=== PATIENT | male | born 1965 | race Caucasian/White ===

== ENCOUNTER 2024-03-25 18:55 | Emergency (ER) | payer OTHER, SELFPAY ==
[2024-03-25 19:09] VITALS: PULSE 117; RESP 16; TEMP 37; O2SAT 100
--- NOTE | 2024-03-25 19:17 | ED.EXTPRO ---
HPI - Extremity Problem General Chief complaint: Extremity Problem,Nontraumatic Stated complaint: foot and leg swelling Time Seen by Provider: 03/25/24 19:17 Source: patient Mode of arrival: ambulatory Limitations: no limitations History of Present Illness HPI Narrative: 59 yo M presents with c/o redness, swelling pain to L lower leg for 2 days. Afebrile. concerned for cellulitis. has had callus to plantar aspect L foot for several years. trimmed it down a few days ago . 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 has blood blister to L side of foot. Was not aware of it. All systems reviewed and negative except as noted above. Related Data Home Medications Medication Instructions Recorded Confirmed albuterol sulfate 90 mcg/actuation 1 puff inhalation Q4H PRN 04/23/22 05/04/22 aerosol inhaler (ProAir HFA) baclofen 10 mg tablet 10 mg PO TID 04/23/22 05/04/22 budesonide-formoterol HFA 80 2 puff inhalation Q12H 04/23/22 05/04/22 mcg-4.5 mcg/actuation aerosol inhaler (Symbicort) hydromorphone 4 mg tablet 4 mg PO .5 times a day PRN 04/23/22 05/04/22 (Dilaudid) lorazepam 0.5 mg tablet (Ativan) 0.5 mg PO DAILY PRN 04/23/22 05/04/22 methadone 10 mg tablet 10 mg PO BID 04/23/22 05/04/22 sennosides 8.6 mg tablet (Senokot) 8.6 mg PO DAILY 04/23/22 05/04/22 escitalopram oxalate 10 mg tablet 20 mg PO DAILY 04/30/22 05/04/22 (Lexapro) magnesium citrate 125 mg capsule 250 mg PO DAILY 04/30/22 05/04/22 ondansetron HCl 4 mg tablet 4 mg PO Q6H 04/30/22 05/04/22 Allergies Allergy/AdvReac Type Severity Reaction Status Date / Time morphine Allergy Mild Itching Verified 03/25/24 19:11 Review of Systems Review of Systems: CONSTITUTIONAL: Denies fever, chills, or sweats. EYES: Denies visual changes, redness, or discharge. ENT: Denies rhinorrhea, congestion, sore throat, or otalgia. CARDIOVASCULAR: Denies chest pain, palpitations, or edema. RESPIRATORY: Denies cough or dyspnea. GASTROINTESTINAL: Denies abdominal pain, nausea, vomiting, or diarrhea. GENITOURINARY: Denies dysuria or hematuria. SKIN: Denies rash or itching. MUSCULOSKELETAL: Denies back pain, joint pain, or myalgia. Reports Erythema, tenderness and swelling to left lower extremity NEUROLOGIC: Denies headache, numbness, or weakness. PSYCHIATRIC: Denies anxiety or depression. All other systems reviewed are negative, except as documented in HPI. [facility] Past Medical History Medical History Chronic back pain COPD (chronic obstructive pulmonary disease) Surgical History Surgical History History of back surgery S/P laparoscopic cholecystectomy S/P vasectomy Family History Family History Father Cancer Mother CHF (congestive heart failure) Other Hypertension Cancer Social History Social History Smoking status: Current every day smoker Tobacco type: cigarettes Substance use: never Comments At time of signature, agree with nursing past medical, surgical, social and family history. There is no relevant family history pertinent to the presenting complaint. Exam Narrative: GENERAL: This is a well-nourished, well-developed patient, in no apparent distress. HEAD: normocephalic, atraumatic. EYES: PERRL. Sclera clear/white. Vision is grossly intact. EARS: External ears normal, auditory canals clear and without drainage, TMs normal without perforation. Hearing grossly intact. NOSE: External nose normal with no obvious nasal discharge, nares without redness, no rhinorrhea. THROAT: Mucous membranes moist, posterior pharynx clear. NECK: Neck supple, non-tender without lymphadenopathy, masses or thyromegaly. CARDIOVASCULAR: Regular rate and rhythm without murmurs, gallops, or rubs. RESPIRATORY: Clear to auscultation. Breath sounds
[2024-03-25] MEDS: cefTRIAXone 1 GM, LIDOCAINE HCL 1% LOCAL INJ 2.1 ML IM (19:38)
== END 2024-03-25 19:45 | disposition home or self-care (01) ==
PROVIDERS: Emergency Provider Nurse Practitioner Family; PCP Family Medicine
DX: S90.822A Blister (nonthermal), left foot, initial encounter (principal); L03.116 Cellulitis of left lower limb; X58.XXXA Exposure to other specified factors, initial encounter; F17.210 Nicotine dependence, cigarettes, uncomplicated; J44.9 Chronic obstructive pulmonary disease, unspecified; G62.9 Polyneuropathy, unspecified; Z98.52 Vasectomy status
CPT/HCPCS: 96372; 99213; G0463; J0696

== ENCOUNTER 2024-06-13 19:39 | Emergency (ER) | payer OTHER, SELFPAY ==
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
[2024-06-13 20:01] VITALS: BP 146/74; PULSE 102; RESP 20; TEMP 36.9; O2SAT 99
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
[2024-06-13] MEDS: HYDROmorphone HCL (*CRX) 4 MG TABLET PO (21:12)
[2024-06-13 22:25] LABS: Estimated CRCL calculation 58 ml/min; Estimated Glomerular Filt Rate > 60
[2024-06-13 22:34] LABS: Basophils Percent Auto 0.3 % (0.2-1.2); Eosinophils Absolute Auto 0.1 K/mm3 (0-0.3); Eosinophils Percent Auto 1.1 % (0-4.4); Hematocrit 40.4 % (42.0-52.0); Hemoglobin 13.2 g/dL (14.0-18.0); Immature Granulocyte Absolute 0.04 K/mm3 (0.00-0.031); Immature Granulocyte Percent A 0.4 % (0-0.5); Lymphocytes Absolute Auto 2.01 K/mm3 (0.9-3.2); Mean Corpuscular HGB Conc 32.7 g/dl (32-36); Mean Corpuscular Hemoglobin 32.3 pg (26-34); Mean Corpuscular Volume 98.8 fl (80-100); Mean Platelet Volume 10.6 fl (7.4-10.4); Monocytes Absolute Auto 0.7 K/mm3 (0.1-0.6); Monocytes Percent Auto 6.7 % (2.6-8.5); Neutrophils Absolute Auto 7.2 K/mm3 (1.3-6.7); Neutrophils Percent Auto 71.5 % (45.5-73.1); Platelet Count Result 282 k/mm3 (150-375); Red Blood Count 4.09 M/mm3 (4.6-6.20); Red Cell Distribution Width 13.4 % (11.5-14.5); White Blood Count 10.1 K/mm3 (4.5-10.0)
[2024-06-13 22:46] VITALS: BP 157/78; PULSE 95; RESP 16; TEMP 36.9; O2SAT 99
[2024-06-13 22:46] LABS: Alanine Aminotransferase 12 U/L (6-50); Albumin Level 4.1 g/dL (3.5-5.1); Alkaline Phosphatase 79 U/L (38-126); Anion Gap 6 mmol/L (4-12); Aspartate Amino Transferase 23 U/L (17-59); Bilirubin,Total 0.2 mg/dL (0.2-1.3); Blood Urea Nitrogen 9 mg/dL (9-20); Calcium 9.5 mg/dL (8.4-10.2); Carbon Dioxide 31 mmol/L (22-30); Chloride 103 mmol/L (98-107); Estimated CRCL calculation 71 ml/min; Estimated Glomerular Filt Rate > 60; Glucose 110 mg/dL (65-110); Potassium 3.5 mmol/L (3.4-5.0); Sodium 140 mmol/L (137-145)
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
[2024-06-13 23:59] VITALS: BP 150/78; PULSE 90; RESP 15; TEMP 36.9; O2SAT 99
== END 2024-06-14 | disposition home or self-care (01) ==
PROVIDERS: Emergency Provider Student in an Organized Health Care Education/Training Program; PCP Family Medicine
DX: M54.50 Low back pain, unspecified (principal); R18.8 Other ascites; J44.9 Chronic obstructive pulmonary disease, unspecified; V43.52XA Car driver injured in collision with other type car in traffic accident, initial encounter
CPT/HCPCS: 36415; 72131; 72192; 73100; 73552; 73562; 74177; 80053; 85025; 86850; 86900; 86901; 99284; A9270; Q9967